=== PATIENT | male | born 1945 | race Caucasian/White ===

== ENCOUNTER 2017-09-23 08:09 | Emergency (ER) | payer MEDICARE, SELFPAY ==
[2017-09-23 08:12] VITALS: BP 136/98; PULSE 87; RESP 17; TEMP 36.7; O2SAT 94; BMI 27.3
--- NOTE | 2017-09-23 08:29 | RAD_ITS ---
STUDY: X-RAY CHEST REASON FOR EXAM: Male, 72 years old. Blood clot seen on CT TECHNIQUE: Single AP portable view of the chest. COMPARISON: None. FINDINGS: Left chest Mediport There is hyperinflation of the lungs consistent with chronic obstructive lung disease (COPD). Lungs are clear. There is no demonstrated pleural abnormality. There is mild cardiac enlargement. Normal mediastinum and murphy. Normal visualized pulmonary arteries. Normal visualized aortic arch and descending thoracic aorta. There are diffuse degenerative changes of the visualized thoracic spine. There is degenerative osteoarthritis of the bilateral shoulders. There is no demonstrated abnormality of the visualized soft tissue structures of the upper abdomen. RAD/Chest 1 View (Portable) IMPRESSION: Degenerative changes, as described above. No demonstrated acute cardiopulmonary process. Electronically Signed: Damien Mejia DO at 9:14 EST Tel , Service support ,
--- NOTE | 2017-09-23 08:29 | EKG12_ITS ---
Test Reason : ABN LABS Blood Pressure : / mmHG Vent. Rate : 075 BPM Atrial Rate : 075 BPM P-R Int : 150 ms QRS Dur : 138 ms QT Int : 410 ms P-R-T Axes : 035 -10 007 degrees QTc Int : 457 ms Sinus rhythm with occasional Premature ventricular complexes Right bundle branch block Abnormal ECG Confirmed by TAMAR SANABRIA, MAGALY ([id number]), media arts professor DEB GARY ([id number] on 09/27/2017 2:37:51 PM Referred By: DELANEY Confirmed By:MAGALY BOYLE MD
[2017-09-23 08:34] VITALS: O2SAT 96
--- NOTE | 2017-09-23 08:53 | ED.VISSUMM ---
- ER Visit Summary Date of Service: 09/23/17 Chief Complaint: [] Rectal cancer outpatient CT shows PE, sent in by oncology service History of Present Illness: The patient is a 72 M [] she has a history of rectal cancer currently undergoing chemotherapy every 2 weeks, last chemo was about 3 weeks ago, he had an outpatient CT for evaluation of the cancer and he was found by radiology to have signs of PE right upper lobe, there were no signs of metastatic disease please see the report that is on the chart, his oncologist Dr. Mariano came by the emergency department provider the report had asked the patient to come in to be evaluated, the doctor felt that the patient's workup was unremarkable he was asymptomatic he can be treated with outpatient Lovenox Reports she has no complaints he has been doing well at home he would not have come to the hospital had he not been called by his physician, he has intermittent rectal bleeding related to the rectal cancer he has no history of rectal bleeding otherwise, no history of GI bleeding, he has no complaints, he has no chest pain fever cough or abdominal discomfort he feels fine and would prefer outpatient management and actually wants to go home Physical Examination: [] Vital signs are within normal range again he is resting company no distress head neck unremarkable lungs are clear heart tones are normal abdomen soft nontender production was unremarkable neurologically he is awake alert moving all 4 Test Results: [] Emergency Department Course and Treatment: [] The patient looks well the PE was found incidentally on CT scan whole body that was looking for metastasis. At this time the patient studies are all unremarkable see those reports, spoke with Dr. Smiley referral management liaison for Dr. Mariano hematology, reviewed the case in detail agrees the patient should be given Lovenox twice daily his maximum dose would be 100 mg subcu this because all the above with the patient he agrees given first dose here is follow-up with his physicians return for change in symptoms he is to contact the contract management specialist on-call there is any difficulties obtaining the Lovenox return for chest pain shortness of breath or other symptoms Treatment Plan: [] Disposition: [] Stable Impression: [] Rectal cancer, PE seen on outpatient CAT scan This note was generated with drumbiation software. It may contain incorrect words, spelling, and punctuation that were not noted in review of the chart prior to signing ED Disposition - Plan for ED Patient: Chief Complaint: Abn Labs Referrals: Richard Flores MD [Primary Care Provider] -
[2017-09-23 08:55] LABS: Absolute Lymphocyte Count 0.98 X10^3/ul (0.83-4.51); Basophil# 0.03 X10^3/uL; Basophil% 0.6 % (0-1); Eosinophil# 0.12 X10^3/uL; Eosinophils% 2.5 % (0-5); Hematocrit 39.9 % (40-54); Hemoglobin 13.3 g/dl (13.0-16.5); Lymphocyte # 0.98 X10^3/ul (4.0); Lymphocyte % 20.3 % (19-41); Mean Corp Hgb Conc 33.3 g/gl (32-36); Mean Corpuscular Hgb 31.5 pg (27.0-32.0); Mean Corpuscular Volume 94.5 fL (80-94); Mean Platelet Vol. 9.9 fl (6.2-12.0); Monocyte# 0.69 X10^3/uL; Monocyte% 14.3 % (0-10); Neutrophil # 2.95 X10^3/uL (2.7-7.7); Neutrophil % 61.3 % (47-70); Platelet Count 236 K/mm3 (150-450); RBC Distribution Width CV 15.7 % (11.6-14.6); RBC Distribution Width SD 52.6 fl (35.1-43.9); Red Blood Count 4.22 M/mm3 (4.6-6.2); White Blood Count 4.8 K/mm3 (4.4-11.0)
[2017-09-23 08:59] LABS: POSITIVE COUNT NO; POSITIVE DIFFERENTIAL NO; POSITIVE MORPHOLOGY NO
[2017-09-23 09:15] LABS: Anion Gap 9 (5-15); BUN 6 mg/dL (7-18); BUN/Creat Ratio 5.8 RATIO (10-20); Calcium,Total 8.8 mg/dL (8.5-10.1); Chloride 103 mmol/L (98-107); Creatinine, Serum 1.03 mg/dL (0.70-1.30); EST Glomerular Filtration Rate 76 mL/min (>60); Est Glom Filt Rate - Afr Amer 92 mL/min (>60); Estimated Creatinine Clearance 79.76 ml/min; Glucose 97 mg/dL (74-106); Potassium 3.9 mmol/L (3.5-5.1); Sodium Level 139 mmol/L (136-145)
[2017-09-23 09:28] LABS: BNP,B-Type NATRIURETIC PEPTIDE 54.8 pg/mL (0-100)
--- NOTE | 2017-09-23 09:38 | ED.RN ---
fluids given at [facility] however, unable to document in the MAR.
[2017-09-23] MEDS: Enoxaparin 100 MG/ML Syringe SC (10:37)
[2017-09-23] MEDS: 0.9% Normal Saline 1,000 ML 15 ML IV (10:37)
[2017-09-23 10:41] VITALS: BP 105/54; PULSE 73; RESP 20; O2SAT 96
== END 2017-09-23 11:09 | disposition home or self-care (01) ==
PROVIDERS: Emergency Provider Emergency Medicine; Family Provider Family Medicine; PCP Family Medicine
DX: I26.99 Other pulmonary embolism without acute cor pulmonale (principal); C20 Malignant neoplasm of rectum; Z79.899 Other long term (current) drug therapy
CPT/HCPCS: 36591; 71045; 80048; 83880; 84484; 85025; 93005; 96360; 96372; 99283; J7030; A4216